=== PATIENT | male | born 1960 | race Two or more races ===

== ENCOUNTER 2022-06-02 06:43 | Day surgery (SDC) | payer OTHER ==
[2022-06-02 07:31] VITALS: BMI 34.4
[2022-06-02] MEDS ORDERED: BUPIVACAINE HCL/PF 2.5 MG/ML - 30 ML VIAL IJ ONE (08:41)
[2022-06-02] MEDS ORDERED: PROPOFOL 20 ML ONE (08:57)
[2022-06-02] MEDS ORDERED: ceFAZolin SODIUM 1 GM VIAL ONE (09:08)
[2022-06-02] MEDS ORDERED: DEXAMETHASONE SOD PHOSPHATE 4 MG/1 ML VIAL ONE (09:18)
[2022-06-02] MEDS ORDERED: ONDANSETRON 4 MG/2 ML VIAL ONE (09:18)
[2022-06-02] MEDS ORDERED: ONDANSETRON 4 MG/2 ML VIAL IVPUSH PRN (09:50)
[2022-06-02] MEDS ORDERED: ACETAMINOPHEN 325 MG TABLET (FP) PO PRN (09:50)
[2022-06-02] MEDS ORDERED: oxyCODONE HCL 5 MG TABLET PO PRN (09:50)
[2022-06-02] MEDS ORDERED: LACTATED RINGERS SOLUTION 1,000 ML IV SCH (10:00)
[2022-06-02] MEDS ORDERED: FENTANYL CITRATE/PF 50 MCG/ML VIAL ONE ×2 (10:01→10:08)
[2022-06-02] MEDS ORDERED: ACETAMINOPHEN 325 MG TABLET (FP) ONE (10:11)
[2022-06-02 10:27] VITALS: TEMP 97.4
[2022-06-02] MEDS ORDERED: oxyCODONE HCL 5 MG TABLET ONE (10:53)
[2022-06-02 12:13] VITALS: RESP 18
[2022-06-02 12:14] VITALS: BP 130/80; PULSE 72
== END 2022-06-02 12:16 | disposition home or self-care (01) ==
LOC: FASU 06:43
PROVIDERS: ATTEND Orthopaedic Surgery
PROC: 0SBF4ZZ Excision of Right Ankle Joint, Percutaneous Endoscopic Approach (ICD-10-PCS; principal; 2022-06-02 09:21)
DX: M24.171 Other articular cartilage disorders, right ankle (principal); M65.9 Synovitis and tenosynovitis, unspecified
CPT/HCPCS: 94760